=== PATIENT | female | born 1950 | race Caucasian/White ===

== ENCOUNTER 2020-11-18 10:30 | Outpatient (CLI) | payer OTHER, SELFPAY ==
--- NOTE | 2020-11-18 12:00 | DI.RAD_ITS ---
Exam(s) XR FOOT RT COMPLETE EXAM: XR FOOT RT COMPLETE CLINICAL HISTORY: fall, injury to ankle and foot M79.605 PAIN RT LEG. TECHNIQUE: 2D digital imaging was performed. COMPARISON: No exams were available for comparison FINDINGS: BONES: No acute fracture is present. No bony destructive lesion is seen. Small plantar calcaneal spu r. Small enthesophyte at the posterior calcaneus. JOINTS: No dislocation present. Degenerative changes of the 1st MTP joint. SOFT TISSUE: Normal. IMPRESSION: No acute fracture or dislocation. DATA REPOSITORY: RADIATION DOSE DELIVERED:
--- NOTE | 2020-11-18 12:00 | DI.RAD_ITS ---
Exam(s) XR ANKLE RT COMPLETE EXAM: XR ANKLE RT COMPLETE CLINICAL HISTORY: fall injury to ankle and foot anterior M79.605 PAIN RT LEG. TECHNIQUE: 2D digital imaging was performed. COMPARISON: No exams were available for comparison FINDINGS: BONES: No acute fracture is present. No bony destructive lesion is seen. JOINTS: The ankle mortise is normally aligned. SOFT TISSUE: Normal. IMPRESSION: No acute fracture or dislocation. DATA REPOSITORY: RADIATION DOSE DELIVERED:
== END 2020-11-18 10:50 ==
PROVIDERS: Visit Provider Physician Assistant
DX: M79.604 Pain in right leg (principal)
CPT/HCPCS: 73610; 73630